=== PATIENT | male | born 1970 | race Caucasian/White ===

== ENCOUNTER 2020-03-17 10:40 | Outpatient (REF) | payer OTHER, SELFPAY ==
--- NOTE | 2020-03-18 12:15 | MHC.AU.P13 ---
Hearing Aid Evaluation- Binaural Date of Visit: 03/17/20 Implementation Consultant Used: Austrian- By Phone Description of Hearing: Normal hearing from 250-1000 Hz, steeply sloping to a mild to severe sensorineural hearing loss from 0015-9821 Hz. Additional Information: Mr. Ontiveros was seen at [facility] on 02/11/2020, at which time he was diagnosed with a bilateral, mild to severe, high-frequency, sensorineural hearing loss. He notes difficulties hearing in background noise and feels he often asks for repetition. Binaural amplification was recommended to facilitate improved communication and medical clearance was received from ENT Dr. Alfonso Decker Hearing Instrument Selection: Right Ear: Maintenance Mechanic Helper: Phonak Model: Audeo P70-13T Battery Size: 13 Color: P1 - Sand Beige Soap Maker: Size 1 M Left Ear: Maintenance Mechanic Helper: Phonak Model: Audeo [id number] Battery Size: 13 Color: P1 - Sand Beige Soap Maker: Size 1 M Plan: Plan of Care for Hearing Instrument Fitting: Patient wishes to purchase hearing aids as prescribed Action Taken/Action Needed: Hearing Fitting to be scheduled when materials arrive Diagnosis Code(s): Primary Diagnosis: H90.3 Bilateral Sensorineural Hearing Loss Signature: Provider: Lyn Sage, CCC-A
== END 2020-03-17 10:41 | disposition home or self-care (01) ==
LOC: HO.HAP 10:40
PROVIDERS: Visit Provider Otolaryngology
DX: Z46.1 Encounter for fitting and adjustment of hearing aid (principal); H90.3 Sensorineural hearing loss, bilateral
CPT/HCPCS: 92591

== ENCOUNTER 2020-04-02 09:48 | Outpatient (REF) | payer OTHER, SELFPAY | END 2020-04-02 09:49 | disposition home or self-care (01) | LOC: HO.HAP 09:48 | PROVIDERS: Visit Provider Internal Medicine | DX: Z45.1 Encounter for adjustment and management of infusion pump (principal); H90.3 Sensorineural hearing loss, bilateral | CPT/HCPCS: V5011; V5020; V5160; V5261; V5266 ==

== ENCOUNTER 2020-04-17 10:20 | Outpatient (REF) | payer OTHER, SELFPAY | END 2020-04-17 10:21 | disposition home or self-care (01) | LOC: HO.HAP 10:20 | PROVIDERS: Visit Provider Internal Medicine | DX: Z13.89 Encounter for screening for other disorder (principal) ==

== ENCOUNTER 2022-06-15 13:33 | Outpatient (REF) | payer OTHER, SELFPAY | END 2022-06-15 13:34 | disposition home or self-care (01) | LOC: HO.HAP 13:33 | PROVIDERS: Visit Provider Internal Medicine | DX: Z46.1 Encounter for fitting and adjustment of hearing aid (principal); H90.3 Sensorineural hearing loss, bilateral | CPT/HCPCS: V5266 ==

== ENCOUNTER 2022-10-01 11:45 | Outpatient (REF) | payer OTHER, SELFPAY | END 2022-10-01 11:46 | disposition home or self-care (01) | LOC: HO.HAP 11:45 | PROVIDERS: Visit Provider Internal Medicine | DX: Z13.89 Encounter for screening for other disorder (principal) ==

== ENCOUNTER 2023-03-01 11:38 | Outpatient (REF) | payer OTHER, SELFPAY | END 2023-03-01 11:39 | disposition home or self-care (01) | LOC: HO.HAP 11:38 | PROVIDERS: Visit Provider Internal Medicine | DX: Z46.1 Encounter for fitting and adjustment of hearing aid (principal); H90.3 Sensorineural hearing loss, bilateral | CPT/HCPCS: 92592; 99499; V5266 ==

== ENCOUNTER 2023-03-04 14:03 | Outpatient (REF) | payer OTHER, SELFPAY | END 2023-03-04 14:04 | disposition home or self-care (01) | LOC: HO.HAP 14:03 | PROVIDERS: Visit Provider Otolaryngology | DX: Z13.89 Encounter for screening for other disorder (principal) ==

== ENCOUNTER 2023-09-05 14:08 | Emergency (ER) | payer OTHER, SELFPAY ==
[2023-09-05 14:40] VITALS: BP 132/70; PULSE 66; RESP 16; TEMP 36.8; O2SAT 95; BMI 36.9
--- NOTE | 2023-09-05 14:42 | ED_ITS ---
[facility] - General Adult General Chief complaint: Ear Problems Stated complaint: Can't Hear out of L Ear Time Seen by Provider: 09/05/23 14:49 Source: patient and RN notes reviewed Mode of arrival: ambulatory Limitations: no limitations History of Present Illness ED Provider: Rebecca Crawford PA-C HPI narrative: This is a 82-gaod-cix-male who presents to the ER with complaints of left ear pain x 2 days. Pt reports no injury or trauma to his ear. No drainage/discharge. Reporting achiness to his left ear and decreased hearing. No fevers, chills, cough, congestion, chest pain or shortness of breath. No other complaints or concerns at this time. MD complaint: L ear pain Onset (ago): day(s) Relieving factors: none Exacerbating factors: none Associated symptoms: denies other symptoms Treatments prior to arrival: none Related Data Previous Rx's ?Medication ?Instructions ?Recorded amoxicillin 875 mg-potassium 1 tab PO BID 7 days #14 tabs 09/05/23 clavulanate 125 mg tablet Allergies Allergy/AdvReac Type Severity Reaction Status Date / Time No Known Allergies Allergy Verified 09/05/23 14:44 Review of Systems Review of Systems: Yes all other systems are reviewed and are negative Constitutional: Constitutional: Reports as per [facility] Social History Social History Advance Directives: No Advance Directives Information Provided: Yes Physical Exam ED Vital Signs: Vital Signs - 24 hr 09/05/23 14:40 Temperature 98.3 F Pulse Rate 66 Respiratory Rate 16 Blood Pressure 132/70 Pulse Oximetry 95 Oxygen Delivery Method Room Air BMI result Body Mass Index 36.9 Const General: cooperative, comfortable and no acute distress Orientation/consciousness: patient oriented x3 Limitations: no limitations HENMT Other: L TM is erythematous and dull, no canal edema or erythema, no exudates noted. No cerumen impaction noted. R ear unremarkable. Head: Yes normal to inspection, Yes normocephalic and Yes atraumatic Ears: hearing grossly normal bilaterally General nose exam: Normal external nose present Face and sinus: Yes normal facial exam Mouth: Normal oral and palatal mucosa present, oropharynx normal and moist mucous membranes Throat: Yes posterior oropharynx normal Eyes General: appearance normal, both eyes and all related structures Eyelids: Yes eyelids normal Conjunctivae: conjunctivae normal Sclerae: sclerae normal Pupils: Equal, round and reactive pupils present EOM: EOMs intact bilaterally Neck Neck: Yes normal visual inspection, Yes full ROM and Yes no lymphadenopathy Lymphatic: no lymphadenopathy noted Chest Chest palpation & inspection: normal inspection of the chest Resp Effort & Inspection: normal respiratory effort and able to speak in complete sentences Auscultation: clear to auscultation bilaterally, no crackles, no rales, no rhonchi and no wheezes Cardio Rate: regular rate Rhythm: regular rhythm Heart sounds: S1 normal heart sound present and S2 normal heart sound present GI Inspection: Yes normal to inspection Skin General skin exam: no rashes or lesions noted Trauma: no lacerations or abrasions Wounds: no wounds Neuro General: patient oriented x3 and moves all extremities Cranial nerves: Yes Equal, round and reactive pupils present Extrem General: Yes normal to inspection Right upper extremity: normal to inspection Left upper extremity: normal to inspection Right lower extremity: normal to inspection Left lower extremity: normal to inspection Course Course Course Narrative: This is an RME: Additional HPI, ROS, PE not included below will be deferred to primary provider. RME assessment and note performed by: Rebecca Crawford PA-C This is a 52-year-old male who presents Medical Decision Making Medical Decision Making MDM Narrative: This is a 38-afxa-exa-male who presents to the ER with complaints of left ear pain and diminished hearing in left ear. On arrival, vss. Pt is nontoxic appearing. He has no mastoid ttp on exam. Exam findings consistent with otitis media. Will tx with course of antibiotics. Given return precautions. Pt understands and agrees with plan. Pt stable for d/c. Differential Diagnosis Differential Diagnoses: The differential diagnosis associated with the presentation includes OM, OE, cerumen impaction, mastoiditis - unlikely Radiology Impression Discussion of test interpretation with radiology: I have reviewed the radiologist's reading. External Record Review External record reviewed: Inpatient record, Office record, Outpatient record, Prior outpatient labs, Prior outpatient radiology, Primary care record and Outside ED record Discharge Plan Discharge Clinical Impression: Acute otitis media, left Patient Disposition: Home, Self-Care Instructions: Ear Infection (ED) Additional Instructions: You were seen in the emergency department due left ear pain. Your left ear appears to be infected, please finish the entire course even if your symptoms improve. Take ibuprofen and or Tylenol as needed for pain. Follow-up with your primary care physician, call tomorrow to make an appointment. If any new or worsening symptoms occur including but not limited to severe ear pain, chest pain, shortness of breath, please return. Prescriptions: New amoxicillin-pot clavulanate 875-125 mg tablet 1 tab PO BID 7 Days Qty: 14 0RF Discharge Date/Time: 09/05/23 15:15 Print Language: Sinhala
== END 2023-09-05 15:15 | disposition home or self-care (01) ==
LOC: HO.ED 14:57
PROVIDERS: Emergency Provider Emergency Medicine; PCP Internal Medicine
DX: H66.92 Otitis media, unspecified, left ear (principal); H91.92 Unspecified hearing loss, left ear
CPT/HCPCS: 99281

== ENCOUNTER 2024-12-26 13:24 | Outpatient (REF) | payer OTHER, SELFPAY ==
--- OUTSIDE RECORDS SUMMARY | 2024-12-27 01:22 | XMS_ITS | Clinical Summary ---
Author Organization [address] Address [address] [place] [address] Phone Care Team Providers Care Truck Switcher Name Role Phone Referring, No Primary Care Provider Unavailabl e Allergies Active Allergy Reactions Criticality Noted Date Comments Unknown Allergen - Immunothe rapy Adverse Reaction 08/11/2017 Medications atorvastatin (LIPITOR) 80 MG tablet Take 1 tablet (80 mg total) by mouth daily with dinner.. 30 tablet 08/24/2017 Active lisinopril (PRINIVIL,ZESTR IL) 40 MG tablet Take 1 tablet (40 mg total) by mouth daily.. 30 tablet 08/25/2017 Active metoprolol tartrate 75 mg Tab Take 75 mg by mouth 2 (two) times daily.. 60 tablet 08/24/2017 Active multivitamins-i sushila-folic nedl-isruftv-lb nerals (THERA-M) 9 mg iron-400 mcg Tab Take 1 tablet by mouth daily.. 30 tablet 08/25/2017 Active aspirin 81 MG EC tablet Take 1 tablet (81 mg total) by mouth daily.. 30 tablet 08/25/2017 Active clopidogrel (PLAVIX) 75 mg tablet Take 1 tablet (75 mg total) by mouth daily.. 30 tablet 08/25/2017 Active melatonin 3 mg Tab Take 1 tablet (3 mg total) by mouth nightly as needed (for sleep).. 30 tablet 08/24/2017 Active chlorthalidone (HYGROTEN) 25 MG tablet Take 1 tablet (25 mg total) by mouth daily.. 30 tablet 08/25/2017 Active Active Problems Problem Noted Date Diagnosed Date CAD (coronary artery disease) 08/15/2017 Coronary artery disease invo lving [place] coronary artery of [place] heart without angina pectoris 08/12/2017 Non-STEMI (non-ST elevated myocardial infarction ) (HC Code) 08/12/2017 Cardiac arrest 08/12/2017 Acute respiratory failure with hypoxia (HC Code) 08/12/2017 Atrial fibrillation, rapid (HC Code) 08/12/2017 Idiopathic hypotension 08/12/2017 Tests ordered 08/11/2017 Social History Tobacco Use Types Packs/Day Years Used Date Smoking Tobacco: Former Cigarettes 0 Q uit: 07/2017 Smokeless Tobacco: Former Sex and Gender Information Value Date Recorded Sex Assigned at Not on file Legal Sex Male 4:42 PM EDT Gender Identity Not on file Sexual Orientation Not on file Last Filed Vital Signs Vital Sign Reading Time Taken Comments Blood Pressure 147/87 09/29/2017 9:56 AM EDT Pulse 55 09/29/2017 9:56 AM EDT Temperature 37.2 C (98.9 F) 08/24/2017 9:22 AM EDT Respiratory Rate 18 08/24/2017 1:04 PM EDT Oxygen Saturation 98% 09/29/2017 9:56 AM EDT Inhaled Oxygen Concentration - - Weight 92.6 kg (204 lb 1.6 oz) 09/29/2017 9:56 A M EDT Height 177.8 cm (5' 10 ) 09/29/2017 9:56 AM EDT Body Mass Index 29.29 09/29/2017 9:56 AM EDT Plan of Treatment Health Maintenance Due Date Last Done Comments Hepatitis C screening 11/26/1987 Lipid disorder screening 2009 Colon cancer screening, Colonoscopy 2014 Pneumococcal Vaccine (50+ years) (1 of 1 - PCV) 11/26/2019 Shingles vaccine (Shingrix) (1 of 2 - Shingrix (RZV) 2 Dose Standard Series) 11/26/2019 Diabetes screening 08/21/2020 08/21/2017, 0 08/19/2017, 08/19/2017, Additional history exists Tetanus adult (Td q 10,TDAP once) 02/19/2023 02/19/2013 Influenza vaccine 09/07/2024 02/19/2013, 12/25/2010 Covid-19 vaccine series ( - season) 2024 07/18/2020, 06/27/2020 RSV Immunization (1 - 1-dose 75+ series) 2044 HIV screening Completed 08/09/2017 Meningococcal B Vaccine Aged Out No l onger eligible based on patient's age to complete this topic Meningococcal Vaccine Aged Out No harriett maciej eligible based on patient's age to complete this topic Procedures Procedure Name Priority Date/Time Associated Diagnosis Comments BASIC METABOLIC PANEL Routine 08/21/2017 6:15 PM EDT from Last 3 Months or Most Recently Relevant to Health Maintenance Results * (ABNORMAL) Basic metabolic panel (08/21/2017 6:15 PM EDT) Sodium 140 135 - 145 mmol/L 08/21/2017 7:19 PM EDT [facility] Potassium 4.0 3.3 - 5.0 mmol/L 08/21/2017 7:19 PM EDT [facility] Comment:Sample slightly hemo lyzed. Results may be falsely elevated due to hemolysis. Chloride 100 96 - 106 mmol/L 08/21/2017 7:19 PM EDT [facility] CO2 25 22 - 30 mmol/L 08/21/2017 7:19 PM EDT [facility] Anion Gap 15 >7-<17 08/21/2017 7:19 PM EDT [facility] Glucose 90 70 - 100 mg/dL 08/21/2017 7:19 PM EDT [facility] BUN 20(H) 8 - 18 mg/dL 08/21/2017 7:19 PM EDT [facility] Creatinine 1.03 0.50 - 1.20 mg/dL 08/21/2017 7:19 PM T [facility] Calcium 8.6(L) 8.8 - 10.2 mg/dL 08/21/2017 7:19 PM EDT [facility] BUN/Creatinine Ratio 19.4 10.0 - 20.0 08/21/2017 7:19 PM EDT [facility] eGFR (Afr Amer) >60 >60 mL/min/1.7 3m2 08/21/2017 7:19 PM EDT [facility] Comment: Values under 60mL/min/1.73m2 may indicate CKD if noted for more than 3 months. eGFR is only valid if creatinine is at steady state. eGFR (NON -Georgette n) >60 >60 mL/min/1.7 3m2 08/21/2017 7:19 PM EDT [facility] Comment: Values under 60mL/min/1.73m2 may indicate CKD if noted for more than 3 months. eGFR is only valid if creatinine is at steady state. Blood specimen (specimen) Venipuncture / Unknown 08/21/2017 6:15 PM EDT 08/21/2017 6:45 PM EDT us Marychuy Healy PRESIDENT AND CHIEF COMMERCIAL OFFICER LAB BLOOD ORDERABLES Final R esult [facility] [address] [place] [address], [facility] [phone] from Last 3 Months or Most Recently Relevant to Health Maintenance Insurance [place] [facility] [place] [facility] [place] [facility] [place] Advance Directives * Full ACLS (Latest Code Status on File) Date Activated Date Inactivated Comments 08/17/2017 9:33 PM 08/24/2017 7:33 PM Question Answer Comments With Whom was the Code Status Discussed? Patient Care Teams Truck Switcher Relationship Specialty Start Date End Date Referring, No PCP - General 08/11/17
--- OUTSIDE RECORDS SUMMARY | 2024-12-27 01:22 | XMS_ITS | Clinical Summary ---
Author Organization Formerly [facility] Address [address] [place] [address] Care Team Providers Care Horser Up Name Role Phone Hans Hughes MD Primary Care Provider [phone] Allergies No known active allergies Medications Medication Sig Dispensed Refills Start Date End Date Status amLODIPine (NORVASC) tablet 10 mg Take 10 mg by mouth daily. 0 Active aspirin EC 81 MG tablet Take 81 mg by mouth daily. 0 Active atorvastatin (LIPITOR) tablet 80 mg Take 80 mg by mouth daily. 0 Active clopidogrel (PLAVIX) 75 MG tablet Take 75 mg by mouth daily. 0 Active escitalopram (LEXAPRO) tablet 10 mg Take 10 mg by mouth daily. 0 Active ibuprofen (ADVIL,MOTRIN) 400 MG tablet Take 400 mg by mouth every 6 (six) hours as needed for pain. 0 Active lisinopril (PRINIVIL,ZESTRIL) tablet 40 mg Take 40 mg by mouth daily. 0 Active metoprolol tartrate (LOPRESSOR) 100 MG tablet Take by mouth 2 (two) times a day. 0 Active pantoprazole (PROTONIX) 40 MG tablet Take 40 mg by mouth every morning on an empty stomach. 0 Active potassium chloride ER (K-DUR,KLOR-CON) tablet 10 mEq Take 10 mEq by mouth 2 (two) times a day. 0 Active Active Problems No known active problems Social History Tobacco Use Types Packs/Day Years Used Date Smoking Tobacco: Former Smokeless Tobacco: Never Alcohol Use Standard Drinks/Week Comments No 0 (1 standard drink = 0.6 oz pur e alcohol) Sex and Gender Information Value Date Recorded Sex Assigned at Not on file Gender Identity Not on file Sexual Orientation Not on file Job Start Date Occupation Industry Not on file Not on file Not on file Last Filed Vital Signs Vital Sign Reading Time Taken Comments Blood Pressure 161/92 02/02/2023 11:32 AM EST Pulse 66 02/02/2023 11:32 AM EST Temperature 35.2 C (95.4 F) 02/02/2023 11:32 AM EST Respiratory Rate - - Oxygen Saturation 99% 02/02/2023 11:32 AM EST Inhaled Oxygen Concentration - - Weight 108.9 kg (240 lb) 02/02/2023 11:32 AM EST Height 180.3 cm (5' 11 ) 12/26/2019 3:03 PM EST Body Mass Index 33.47 12/26/2019 3:03 PM EST Plan of Treatment Health Maintenance Due Date Last Done Comments Hepatitis B Vaccines (1 of 3 - 3-dose series) 1969 Hepatitis C Screening 1969 Depression Screening 1981 Preventative Health Evaluation 11/26/1987 Colon Cancer Screening (Colonoscopy) 2014 Shingrix-Zoster Vaccine (1 o f 2) 11/26/2019 DTap / Tdap / Td (2 - Td or Tdap) 02/19/2023 02/19/2013 COVID-19 Vaccine (3 - 2024-2 6 season) 2024 07/18/2020, 06/27/2020 Influenza Vaccine (#1) 2024 4, 12/25/2010 Pneumococcal Vaccine Aged Out No long er eligible based on patient's age to complete this topic RSV Ped < 20 months Aged Out No longe r eligible based on patient's age to complete this topic Care Teams Horser Up Relationship Specialty Start Date End Date Lebaka, Hans R, MD [address] [place] [id number] PCP - General Hospitalist Medicine 12/15/22
--- OUTSIDE RECORDS SUMMARY | 2024-12-27 01:22 | XMS_ITS ---
Author Name [facility] Organization Unknown Care Team Organization Name Specialty Phone Email Start Date End Da te [facility] Hans Hughes Primary Care 12/15/202109/07
--- NOTE | 2024-12-27 09:37 | MHC.AU.HA3 ---
Hearing Instrument Follow-Up- Binaural Date of Visit: 12/27/24 Right Ear: Tj, Model, Color, Serial Number: Amaya Barnhart [id number] SN: [id number] Ratoprinter Repair Warranty: 06/16/2023 Ratoprinter Loss and Damage Warranty: USED [facility] Service Plan: Battery Size: 13 Well Logging Operator Mud Analysis/Slim Tube: 1M Earmold/Dome/CShell/SlimTip:Small open dome with retention tail Type of Wax Guard: Cerushield Dispensed By: [facility] Date of Fittin04/02/2020 Left Ear: Tj, Model, Color, Serial Number: Amaya Barnhart [id number] SN: [id number] Ratoprinter Repair Warranty: 06/16/2023 Ratoprinter Loss and Damage Warranty: 06/16/2023 [facility] Service Plan: Battery Size: 13 Well Logging Operator Mud Analysis/Slim Tube: 1M Earmold/Dome/CShell/SlimTip: Small open dome with retention tail Type of Wax Guard: Cerushield Dispensed By: [facility] Date of Fittin04/02/2020 Follow-Up Summary: Both HAs dropped off 12/26/2024 reporting HAs making noises. Assessed on 12/27/2024. Could not replicate any unusual noises. HAs needed cleaning/maintenance. Cleaned HAs (2). Replaced domes (2), wax guards (2), and retention tails [id number]. Vacuumed microphones. Ran through dehumidifier. Listening check demonstrated HAs amplifying clearly. German speaking, spoke to Marnie at front office attendant. Per Dimitrios Dye reported hearing noises whenever he wears the HAs. Data logging <1 hour/day; likely hearing environmental sounds. Recommend more consistent use and scheduling appointment if issue persists. Recommendations: Hearing instrument follow-up or maintenance as needed. Please contact our clinic with any questions or concerns. Patient will call if problems persist. Diagnosis Code(s): Primary Diagnosis: H90.3 Bilateral Sensorineural Hearing Loss Signature: Provider: Rj Vazquez, CCC-A
== END 2024-12-26 13:25 | disposition home or self-care (01) ==
LOC: HO.HAP 13:24
PROVIDERS: Visit Provider Internal Medicine
DX: Z13.89 Encounter for screening for other disorder (principal)

== ENCOUNTER 2024-12-27 11:37 | Outpatient (REF) | payer OTHER, SELFPAY | END 2024-12-27 11:38 | disposition home or self-care (01) | LOC: HO.HAP 11:37 | PROVIDERS: Visit Provider Internal Medicine | DX: Z46.1 Encounter for fitting and adjustment of hearing aid (principal); H90.3 Sensorineural hearing loss, bilateral | CPT/HCPCS: 92593; 99499 ==